=== PATIENT | male | born 1960 | race African-American/Black ===

== ENCOUNTER 2021-01-19 07:47 | Emergency (ER) | payer MEDICAID, OTHER ==
[2021-01-19] MEDS ORDERED: HYDROcodone/Acetaminophen 5/325 mg Tablet ONE (08:46)
== END 2021-01-19 11:48 | disposition short-term general hospital (02) ==
LOC: ERS 07:47
DX: G89.29 Other chronic pain (principal); M54.9 Dorsalgia, unspecified
CPT/HCPCS: 99283